=== PATIENT | female | born 1990 | race Caucasian/White ===

== ENCOUNTER → 2017-10-30 | Outpatient (CLI) | payer OTHER ==
[2016-01-21 20:48] VITALS: BP 117/79
[~2017-10-30] MED LIST: ONDA4TAB7 PO; TRAM50TA PO
--- NOTE | 2017-10-30 08:43 | RAD ---
Abdominal ultrasound, 10/30/2017: HISTORY: , right upper quadrant pain The gallbladder is within normal limits in size. There is no sonographic evidence of cholelithiasis. The gallbladder wall is not thickened. The common hepatic duct is of normal caliber. The visualized portions of the liver, spleen and both kidneys are unremarkable. The pancreas was poorly visualized due to overlying bowel the upper abdominal aorta is unremarkable. The distal abdominal aorta was not clearly delineated. The visualized portions of the inferior vena cava are unremarkable. No free fluid is evident in the abdomen. IMPRESSION: No significant abnormality is detected, although the pancreas and portions of the central retroperitoneum were obscured by overlying bowel. Electronically signed by: Dakota Denton MD (10/30/2017 8:40 AM) [facility]
== END | disposition home or self-care (01) ==
LOC: US 07:35
PROVIDERS: ATTEND Obstetrics & Gynecology
DX: R10.11 Right upper quadrant pain (principal); J45.909 Unspecified asthma, uncomplicated
CPT/HCPCS: 76700

== ENCOUNTER 2018-02-01 18:26 | Emergency (ER) | payer OTHER ==
--- NOTE | 2018-02-01 18:33 | ED.ADGEN ---
Past History Past Medical History: Asthma Past Surgical History: No Surgical History Alcohol Use: Rarely Drug Use: None Adult General Chief Complaint Chief Complaint ".. I am coughing and congestion... I get allergies.. this time a year.. but I am around sick people at [employer] and my baby.. been exposed to strep... at day care..." HPI HPI Patient is a 27 year old female who presents with rhinorrhea, congestion, cough , sore throat. No recent travel or specific ill contacts, but is exposed to pt. at [employer] where she works.. Pt. denies any travel. Patient denies any change in medications. Her child been around children that are sick with strep at the day care. Patient does state she gets seasonal allergies about this time year. Patient normally follows at a primary care. Her daughter follows with Dr. Franco. No recent travel. Up to date with vaccinations. Review of Systems Review of Systems Constitutional: Denies fever or chills [] Eyes: Denies change in visual acuity, redness, or eye pain [] HENT: History of nasal congestion or sore throat []and left ear pain Respiratory Hx of cough and congestions and wheezing. Cardiovascular: No additional information not addressed in HPI [] GI: Denies abdominal pain, nausea, vomiting, bloody stools or diarrhea [] : Denies dysuria or hematuria [] Musculoskeletal: Denies back pain or joint pain [] Integument: Denies rash or skin lesions [] Neurologic: Denies headache, focal weakness or sensory changes [] Endocrine: Denies polyuria or polydipsia [] All other systems were reviewed and found to be within normal limits, except as documented in this note. Family History Family History Noncontributory-daughter is also sick now Current Medications Current Medications Current Medications Medications (Trade) Dose Ordered Sig/Alisa Start Time Stop Time Status Last Admin Dose Admin Cephalexin HCl (Keflex) 500 mg 1X ONCE 02/01/18 19:00 02/01/18 19:11 DC 02/01/18 19:24 500 MG Prednisone (Prednisone) 60 mg 1X ONCE 02/01/18 19:00 02/01/18 19:11 DC 02/01/18 19:24 60 MG Noncontributory see nursing Allergies Allergies Allergies Coded Allergies Type Severity Reaction Last Updated Verified No Known Drug Allergies 01/21/16 No Physical Exam Physical Exam Constitutional: Well developed, well nourished, no acute distress, non-toxic appearance. [] HENT: Normocephalic, atraumatic, bilateral external ears normal, oropharynx moist, pharyngeal injection, no oral exudates, nose rhinorrhea. Injected TM on left. [] Eyes: PERRLA, EOMI, conjunctiva normal, no discharge. [] Neck: Normal range of motion, no tenderness, supple, no stridor. [] Cardiovascular:Heart rate regular rhythm, no murmur [] Lungs & Thorax: Bilateral breath sounds equal at apex with scattered wheezes on auscultation [] Abdomen: Bowel sounds normal, soft, no tenderness, no masses, no pulsatile masses. [] Skin: Warm, dry, no erythema, no rash. [] Back: No tenderness, no CVA tenderness. [] Extremities: No tenderness, no cyanosis, no clubbing, ROM intact, no edema. [] Neurologic: Alert and oriented X 3, normal motor function, normal sensory function, no focal deficits noted. [] Psychologic: Affect anxious, judgement normal, mood normal. [] Current Patient Data Vital Signs Vital Signs Date Time Temp Pulse Resp B/P (MAP) Pulse Ox O2 Delivery O2 Flow Rate FiO2 02/01/18 18:42 98.9 78 18 95 Room Air Lab Results Laboratory Tests Test 02/01/18 18:57 Group A Streptococcus Rapid Negative (NEGATIVE) EKG EKG [] Radiology/Procedures Radiology/Procedures [] Course & Med Decision Making Course & Med Decision Making Pertinent Labs and Imaging studies reviewed. (See chart for details). Gargle with Listerine 4 times a day. Use Flonase [id number] 2 sprays at night. Normal saline rinses also be helpful. Take Keflex 500 x 3 times a day for ear infection. Follow-up primary care. Return if any concerns. May continue to breast feed. [] Final Impression Final Impression 1. Seasonal Allergies[] 2. Otitis Dragon Disclaimer Dragon Disclaimer This electronic medical record was generated, in whole or in part, using a voice recognition dictation system. MALIHA DALE MD Feb 01, 2018 18:33
[2018-02-01 18:42] VITALS: BP 131/80
[2018-02-01] MEDS ORDERED: CEPHALEXIN 250 MG CAPSULE PO ONE (19:00)
[2018-02-01] MEDS ORDERED: predniSONE 20 MG TABLET PO ONE (19:00)
[2018-02-01] MEDS ORDERED: CEPH-264 PO (19:06)
== END 2018-02-01 19:45 | disposition home or self-care (01) ==
LOC: ER 18:26
DX: J30.2 Other seasonal allergic rhinitis (principal); H66.92 Otitis media, unspecified, left ear; J45.909 Unspecified asthma, uncomplicated
CPT/HCPCS: 87070; 87880; 99283; J7512

== ENCOUNTER 2020-11-13 11:22 | Emergency (ER) | payer OTHER ==
[~2020-11-13] VITALS: Ht 162.6 cm; Wt 91.5 kg
[~2020-11-13 11:22] MED LIST changes: +CEPH-264 PO
[2020-11-13] MEDS ORDERED: ONDANSETRON PF 4 MG/2 ML VIAL. ONE (12:08)
[2020-11-13] MEDS ORDERED: IV NORMAL SALINE 1,000ML 1,000 ML IV ONE (12:15)
[2020-11-13] MEDS ORDERED: ONDANSETRON PF 4 MG/2 ML VIAL. IVP ONE (12:15)
[2020-11-13] MEDS ORDERED: ONDANSETRON ODT 4 MG TAB.RAPDIS PO ONE (12:15)
[2020-11-13] MEDS ORDERED: ACETAMINOPHEN 500 MG TABLET PO ONE (12:15)
--- NOTE | 2020-11-13 12:36 | PHYS DOC ---
Past History Past Medical History: Asthma, Other Additional Past Medical Histor: etopic preg Past Surgical History: No Surgical History Alcohol Use: None Drug Use: None Adult General Chief Complaint Chief Complaint: HEADACHE HPI HPI Patient is a 30-year-old female who presents to the emergency room complaining of a generalized headache. Patient states she woke up with a headache this morning and shortly thereafter developed some nausea. She tried to take some Tylenol and then had some vomiting. She states that she was out in the sun all weekend and thinks maybe she has some heat exhaustion. She is 12 weeks at this time. She states her is also woken up with a headache this morning. She denies any neck stiffness, fever, chills, sweats, cough, shortness of breath. She states she did try to drink some fluids this morning but vomited them. She believes she needs some IV fluids. Review of Systems Review of Systems Complete ROS is negative unless otherwise documented in HPI Current Medications Current Medications Current Medications Medications (Trade) Dose Ordered Sig/Alisa Start Time Stop Time Status Last Admin Dose Admin Acetaminophen (Tylenol) 500 mg 1X ONCE 11/13/20 12:15 11/13/20 12:16 DC 11/13/20 12:11 500 MG Ondansetron HCl (Zofran Odt) 4 mg 1X ONCE 11/13/20 12:15 11/13/20 12:09 DC Ondansetron HCl (Zofran) 4 mg 1X ONCE 11/13/20 12:15 11/13/20 12:16 DC 11/13/20 12:17 4 MG Sodium Chloride 1,000 ml @ 1,000 mls/hr 1X ONCE 11/13/20 12:15 11/13/20 13:14 11/13/20 12:15 1,000 MLS/HR Allergies Allergies Allergies Coded Allergies Type Severity Reaction Last Updated Verified No Known Drug Allergies 11/13/20 No Physical Exam Physical Exam General: Awake, alert, NAD. Well Nourished, well hydrated. Cooperative HEENT: Atraumatic, EOMI, PERRL, airway patent, moist oral mucosa Neck: Supple, trachea midline Respiratory: CTA bilaterally, normal effort, no wheezing/crackles CV: RRR, no murmur, cap refill <2 GI: Soft, nondistended, nontender, no masses MSK: No obvious deformities Skin: Warm, dry, intact Neuro: A&O x3, speech NL, 5/5 strength in BUE/BLE distally and proximally, CN 2- 12 intact, cerebellar testing normal Psych: Normal affect, normal mood, not suicidal or homicidal Current Patient Data Vital Signs Vital Signs Date Time Temp Pulse Resp B/P (MAP) Pulse Ox O2 Delivery O2 Flow Rate FiO2 11/13/20 11:32 98.5 80 18 117/73 (88) 98 Room Air EKG EKG [] Radiology/Procedures Radiology/Procedures [] Heart Score C/O Chest Pain: N/A Risk Factors: Risk Factors: DM, Current or recent (<one month) smoker, HTN, HLP, family history of CAD, obesity. Risk Scores: Risk Factors: DM, Current or recent (<one month) smoker, HTN, HLP, family history of CAD, obesity. Course & Med Decision Making Course & Med Decision Making Pertinent Labs and Imaging studies reviewed. (See chart for details) Patient is 30-year-old female at 12 weeks gestation who presents to the emergency room with a generalized headache. Patient does not have any signs or symptoms that are consistent with meningitis or encephalopathy. She is overall well-appearing. She will be given IV fluids, Zofran, Tylenol. UA and test were ordered. UA negative. Patient is feeling significantly better after fluids. Patient's test results and vitals while in the ED were fully reviewed and discussed with the patient. Patient is stable and at this time does not need admission to the hospital. We have discussed strict return precautions and the importance of following up with their Primary Care Physician. Patient stated understanding and was given an opportunity to ask any questions. Patient is in agreement with plan. Dragon Disclaimer Dragon Disclaimer This electronic medical record was generated, in whole or in part, using a voice recognition dictation system. Departure Departure: Impression: Primary Impression: Acute headache Disposition: HOME / SELF CARE / HOMELESS Condition: IMPROVED Referrals: KEESHA MANCERA MD (PCP) Patient Instructions: General Headache Without Cause JACKIE OLEA MD Nov 13, 2020 12:36
[2020-11-13 14:00] VITALS: BP 114/73
[2020-11-13 14:07] LABS: BILIRUBIN,URINE NEG (NEG); CLARITY,URINE CLEAR; COLOR,URINE YELLOW; GLUCOSE,URINE NEG (NEG); NITRITE,URINE NEG (NEG); UROBILINOGEN,URINE 0.2 mg/dL (0.2 mg/dL)
[2020-11-13 14:08] LABS: BACTERIA,URINE 0 /HPF (0-FEW); RBC,URINE RARE /HPF (0-2); SQUAMOUS EPITHELIAL CELL,UR OCC /LPF; WBC,URINE RARE /HPF (0-4)
== END 2020-11-13 14:44 | disposition home or self-care (01) ==
LOC: ER 11:22
DX: O26.891 Other specified pregnancy related conditions, first trimester (principal); O21.9 Vomiting of pregnancy, unspecified; R51.9 Headache, unspecified; O99.512 Diseases of the respiratory system complicating pregnancy, second trimester; J45.909 Unspecified asthma, uncomplicated; Z3A.12 12 weeks gestation of pregnancy
CPT/HCPCS: 81001; 81025; 96361; 96374; 99285; J2405; J7030